=== PATIENT | male | born 2000 | race Caucasian/White ===

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

== ENCOUNTER 2021-06-01 01:46 | Outpatient (CLI) | payer MEDICAID, SELFPAY ==
--- NOTE | 2021-06-01 12:45 | RT.EKG_ITS ---
APPROVED REPORT Exam: Resting ECG Reason for Exam: PALPITATIONS Patient Location: O HR:58 bpm ECG Measurements Heart Rate 58 AXIS MO 136 P 46 QRSd 82 QRS 64 QT 394 T 44 QTc 381 Conclusion Sinus bradycardia...rate< 60 Normal Electrocardiogram
== END 2021-06-01 01:47 | disposition home or self-care (01) ==
LOC: RT 01:46
PROVIDERS: PCP Pediatrics; Visit Provider Pediatrics
DX: R00.2 Palpitations (principal); R06.02 Shortness of breath
CPT/HCPCS: 93005; 93010

== ENCOUNTER 2021-06-01 03:30 | Outpatient (CLI) | payer MEDICAID, SELFPAY ==
[2021-06-01 12:47] LABS: Abs Immature Grans 0.01 10^3/uL (0.0-0.06); Absolute Basophil Count 0.07 10^3/uL (0.0-0.2); Absolute Eosinophil Count 0.42 10^3/uL (0.0-0.7); Absolute Lymphocyte Count 2.31 10^3/uL (1.2-3.4); Absolute Neutrophil Count 3.95 10^3/uL (1.2-6.7); Eosinophils % 5.7; HCT 44.2 % (40.0-50.0); HGB 14.6 g/dL (13.5-17.5); Immature Grans % 0.1; Lymphocytes % 31.4; MCH 28.6 pg (27.0-33.0); MCV 86.5 fL (80-95); MPV 9.4 fL (8.0-11.0); Monocytes % 8.2; Neutrophils % 53.6; Nucleated RBC 0 %; Platelet Count 236 10^3/uL (130-400); RBC 5.11 10^6/uL (4.36-5.78); RDW 12.2 % (11.8-14.1); RDW-SD 38.7 fL; WBC 7.36 10^3/uL (4.4-10.8)
[2021-06-01 14:07] LABS: ALT 20 U/L (16-63); AST 12 U/L (15-37); Albumin 4.4 g/dL (3.4-5.0); Alkaline Phosphatase 40 U/L (46-116); Anion Gap 5.6 mmol/L (3-11); BUN 16 mg/dL (7-18); CO2 30.4 mmol/L (21.0-32.0); CREATININE 1.3 mg/dL (0.70-1.30); Calcium 9.1 mg/dL (8.5-10.1); Chloride 105 mmol/L (98-107); Glucose 95 mg/dL (74-106); Potassium 4.2 mmol/L (3.5-5.1); Sodium 141 mmol/L (136-145); TSH (W/Ref FT4) 2.11 uIU/mL (0.52-4.13); Total Protein 7.1 g/dL (6.4-8.2)
== END 2021-06-01 03:31 | disposition home or self-care (01) ==
LOC: LBO 03:30
PROVIDERS: PCP Pediatrics; Visit Provider Pediatrics
DX: R00.2 Palpitations (principal)
CPT/HCPCS: 36415; 80053; 84443; 85025

== ENCOUNTER 2021-06-02 08:53 | Outpatient (RCR) | payer MEDICAID, SELFPAY ==
--- NOTE | 2021-06-02 12:00 | HOLTER_ITS ---
APPROVED REPORT Conclusion This is a 48-hour Holter monitor ordered for symptoms of palpitations Rhythm throughout was sinus with an average heart rate of 66. Minimum was 44, maximum 143 There was an isolated atrial premature beat. There were no ventricular dysrhythmias Patient reported symptoms of fast heartbeat associated with heavy lifting likely corresponded to sinu s tachycardia There was no atrial fibrillation, no high-grade AV block, no pauses greater than 3 seconds
== END 2021-06-28 23:59 | disposition home or self-care (01) ==
LOC: RT 08:53
PROVIDERS: PCP Pediatrics; Visit Provider Pediatrics
DX: R00.2 Palpitations (principal)
CPT/HCPCS: 93225; 93226

== ENCOUNTER 2022-09-04 15:35 | Outpatient (CLI) | payer MEDICAID, SELFPAY | END 2022-09-04 15:36 | disposition home or self-care (01) | LOC: LBO 15:36 | PROVIDERS: PCP Pediatrics | DX: R30.0 Dysuria (principal); Z11.4 Encounter for screening for human immunodeficiency virus [HIV]; Z11.59 Encounter for screening for other viral diseases; Z11.3 Encounter for screening for infections with a predominantly sexual mode of transmission | CPT/HCPCS: 36415; 86803; 87389; 87491; 87591; 86592 ==

== ENCOUNTER 2023-01-19 09:17 | Emergency (ER) | payer MEDICAID, SELFPAY ==
[2023-01-19 09:20] VITALS: BP 129/77; PULSE 72; RESP 20; TEMP 36.5; O2SAT 99
[2023-01-19] MEDS: Tetanus & Diphtheria Tox,ADULT 0.5 ML VIAL IM (09:51)
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
[2023-01-19 11:26] VITALS: BP 122/71; PULSE 98; RESP 16; O2SAT 100
== END 2023-01-19 11:28 | disposition home or self-care (01) ==
PROVIDERS: Emergency Provider Physician Assistant; PCP Pediatrics
DX: S66.911A Strain of unspecified muscle, fascia and tendon at wrist and hand level, right hand, initial encounter (principal); S00.83XA Contusion of other part of head, initial encounter; Z23 Encounter for immunization; Y04.2XXA Assault by strike against or bumped into by another person, initial encounter
CPT/HCPCS: 90471; 99284; 70450; 70486; 73110; 73130

== ENCOUNTER 2024-04-30 09:39 | Outpatient (REF) | payer BC, SELFPAY ==
[2024-05-03 12:11] LABS: Chlamydia Result Negative (Negative); GC Result Negative (Negative)
== END 2024-04-30 09:40 | disposition home or self-care (01) ==
LOC: LBN 09:39
PROVIDERS: PCP Pediatrics; Visit Provider Nurse Practitioner Family
DX: Z11.3 Encounter for screening for infections with a predominantly sexual mode of transmission (principal)
CPT/HCPCS: 87491; 87591